=== PATIENT | male | born 1995 | race African-American/Black ===

== ENCOUNTER 2023-10-30 08:35 | Outpatient (CLI) | payer BC, SELFPAY | END 2023-10-30 08:36 | disposition home or self-care (01) | PROVIDERS: Visit Provider Physician Assistant Medical | DX: G47.00 Insomnia, unspecified (principal); Z13.9 Encounter for screening, unspecified | CPT/HCPCS: 80053; 80061; 82728; 84443 ==

== ENCOUNTER 2024-10-18 08:59 | Outpatient (CLI) | payer BC, SELFPAY | END 2024-10-18 09:00 | disposition home or self-care (01) | LOC: NFLDREF 10-22 03:19 | PROVIDERS: Visit Provider Physician Assistant Medical | DX: F51.01 Primary insomnia (principal); Z13.220 Encounter for screening for lipoid disorders; Z13.29 Encounter for screening for other suspected endocrine disorder | CPT/HCPCS: 80053; 80061; 82728; 84443 ==